=== PATIENT | male | born 1940 | race Caucasian/White ===

== ENCOUNTER 2017-06-10 11:16 | Emergency (ER) | payer MEDICARE ==
[2017-06-10] MEDS ORDERED: Acetaminophen 650 MG Suppository ONE (11:45)
[2017-06-10 11:48] LABS: Hematocrit 32.4 % (42.0-52.0); Mean Platelet Volume 7.1 fL (7.4-10.4); Red Blood Cell (RBC) Count 3.46 mill/uL (4.70-6.10); White Blood Cell (WBC) Count 13.8 thou/uL (4.8-10.8)
[2017-06-10 11:54] LABS: PTT 29.8 SEC (22.9-36.1); Prothrombin Time 16.9 SEC (12.0-14.7)
[2017-06-10] MEDS ORDERED: Fentanyl 100 MCG/2 ML VIAL ONE ×3 (11:57→12:49)
[2017-06-10] MEDS ORDERED: Piperacillin/Tazobactam 3.375 GM in Sodium Chloride 0.9% 100 ML IVPB SCH (12:00)
[2017-06-10 12:04] LABS: Lactic Acid - Sepsis 2.9 mmol/L (0.5-2.2)
[2017-06-10 12:09] LABS: Bilirubin Small (Negative); Blood, Urine Negative (Negative); Glucose, Urine (Dipstick) Negative (Negative); Ketone, Urine Trace mg/dL (Negative); Nitrite Negative (Negative); Protein, Urine (Dipstick) Trace mg/dL (Neg-Trace)
[2017-06-10 12:10] LABS: ALT (SGPT) 13 U/L (8-55); AST (SGOT) 21 U/L (5-34); Alkaline Phosphatase 103 U/L (40-150); Anion Gap 12 mmol/L (10-20); BUN (Urea Nitrogen) 31 mg/dL (8.4-25.7); Bilirubin, Total 0.9 mg/dL (0.2-1.2); Calc. Creatinine Clearance 0 mL/min (70-130); Calcium 8.2 mg/dL (7.8-10.44); Carbon Dioxide 24 mmol/L (23-31); Chloride 108 mmol/L (98-107); Estimated GFR-MDRD 50; Globulin 2.8 g/dL (2.4-3.5); Lipase 7 U/L (8-78); Magnesium 1.7 mg/dL (1.6-2.6); Protein, Total 5.2 g/dL (5.8-8.1)
[2017-06-10 12:13] LABS: Squamous Epithelial 0-3 HPF (0-3)
[2017-06-10 12:25] LABS: Bacteria/HPF Rare-Few HPF (None Seen); Hyaline Casts/LPF 0-3 HYALINE CAST LPF (0-3 Hyaline); RBC/HPF 0-3 HPF (0-3); Yeast-All Forms None Seen HPF (None Seen)
[2017-06-10 12:34] LABS: Band 24 % (5-11); Neutrophil 62 % (42-75); Polychromasia SLIGHT = 2-3 cells (100X) (0-2/hpf); Vacuoles SLIGHT
--- NOTE | 2017-06-10 12:36 | RAD ---
CHEST ONE VIEW: Comparison: 04-26-17 History: Intubated patient. Possible sepsis. FINDINGS: Portable supine chest demonstrates endotracheal tube, just beyond the clavicles. Atherosclerosis of t he aorta is noted. Heart is enlarged. Pulmonary vessels are within normal limits. Patchy interstitial and alveolar opacities. Small bilateral pleural effusions. There is no pneumothorax. No osseous abno rmalities. IMPRESSION: Congestive heart failure. POS: [facility]
[2017-06-10] MEDS ORDERED: Morphine 4 MG/ML VIAL ONE (12:56)
== END 2017-06-10 13:28 | disposition expired ==
LOC: ERS 11:16
DX: R09.2 Respiratory arrest (principal); Z79.899 Other long term (current) drug therapy; G30.9 Alzheimer's disease, unspecified; F02.80 Dementia in other diseases classified elsewhere, unspecified severity, without behavioral disturbance, psychotic disturbance, mood disturbance, and anxiety; E78.5 Hyperlipidemia, unspecified; I10 Essential (primary) hypertension
CPT/HCPCS: 51702; 71010; 80053; 81003; 81015; 82553; 83605; 83690; 83735; 83880; 84484; 85025; 85610; 85730; 93005; 94002; 96365; 96366; 96368; 96375; 96376; J1956; J2270; J2543; J3010; J3370; J7050